=== PATIENT | male | born 1930 ===

== ENCOUNTER → 2018-09-16 | Outpatient (CLI) | payer OTHER ==
[~2018-09-16] MED LIST: DIOVAN160 M1; HEMATRON P.O.1 UDTAB; LIPITOR20 MG PO; METOPROLOL SUCC50 MG; PLAVIX75 MG PO
== END | disposition home or self-care (01) ==
LOC: NUCLEAR 11:00
DX: I73.9 Peripheral vascular disease, unspecified (principal)

== ENCOUNTER 2018-12-05 08:45 | Outpatient (CLI) | payer OTHER | END 2018-12-05 13:46 | disposition home or self-care (01) | LOC: MRI 08:45 | DX: M25.562 Pain in left knee (principal) | CPT/HCPCS: 73721 ==